=== PATIENT | male | born 2000 | race Caucasian/White ===

== ENCOUNTER 2025-04-14 13:07 | Emergency (ER) | payer OTHER ==
[~2025-04-14] VITALS: Ht 177.8 cm; Wt 126.2 kg
[~2025-04-14 13:07] MED LIST: ADDERALL 30 MG30 MG PO
[2025-04-14] MEDS ORDERED: BACTRIM DS TAB1 EACH PO (14:19)
[2025-04-14 14:49] VITALS: BP 118/78
== END 2025-04-14 14:50 | disposition home or self-care (01) ==
LOC: ED 13:07
DX: L05.91 Pilonidal cyst without abscess (principal); Z88.8 Allergy status to other drugs, medicaments and biological substances
CPT/HCPCS: 99282